=== PATIENT | female | born 1975 | race Caucasian/White ===

== ENCOUNTER 2018-04-03 02:09 | Emergency (ER) | payer OTHER ==
[2018-04-03 02:31] VITALS: TEMP 97.5
[2018-04-03] MEDS ORDERED: SODIUM CHLORIDE 0.9% 1,000 ML IV ONE (02:48)
--- NOTE | 2018-04-03 03:07 | ED ---
Female Urogenital HPI - General Chief complaint: Vaginal Bleeding Stated complaint: 8 Weeks Vaginal Bleeding Time Seen by Provider: 04/03/18 02:48 Source: patient, RN notes reviewed, old records reviewed Mode of arrival: ambulatory Limitations: no limitations - History of Present Illness Initial comments: Patient is a 42-year-old female, female who is approximately 8 weeks . She presents today with complaints of vaginal bleeding times one day. Patient states she has history of PCO S and had a hard time getting . She reports that she thought she was 3 days ago. Patient states that she's had no vomiting. She reports some mild abdominal cramping. Patient has no MEDICAL SUPERINTENDENT at this time.Patient denies any recent fever, chills, shortness of breath, chest pain, back pain, abdominal pain, nausea vomiting, numbness or tingling, dysuria or hematuria, constipation or diarrhea, headaches or visual changes, or any other current symptoms - Related Data Allergies Allergy/AdvReac Type Severity Reaction Status Date / Time No Known Allergies Allergy Verified 04/03/18 02:31 Review of Systems ROS Statement: Those systems with pertinent positive or pertinent negative responses have been documented in the HPI. ROS Other: All systems not noted in ROS Statement are negative. Past Medical History Additional Past Medical History / Comment(s): PCOS History of Any Multi-Drug Resistant Organisms: None Reported Smoking Status: Former smoker Past Alcohol Use History: Rare Past Drug Use History: None Reported General Exam - General Exam Comments Initial Comments: This is a 42-year-old female. Alert and oriented. No distress. Limitations: no limitations General appearance: alert, in no apparent distress Head exam: Present: atraumatic, normocephalic, normal inspection Eye exam: Present: normal appearance, PERRL, EOMI. Absent: scleral icterus, conjunctival injection, periorbital swelling ENT exam: Present: normal exam, mucous membranes moist Neck exam: Present: normal inspection. Absent: tenderness, meningismus, lymphadenopathy Respiratory exam: Present: normal lung sounds bilaterally. Absent: respiratory distress, wheezes, rales, rhonchi, stridor Cardiovascular Exam: Present: regular rate, normal rhythm, normal heart sounds. Absent: systolic murmur, diastolic murmur, rubs, gallop, clicks GI/Abdominal exam: Present: soft, normal bowel sounds. Absent: distended, tenderness, guarding, rebound, rigid External exam: Present: normal external exam Speculum exam: Present: normal speculum exam, vaginal bleeding By manual exam: Present: normal by manual exam. Absent: cervical motion tenderness Extremities exam: Present: normal inspection, full ROM, normal capillary refill. Absent: tenderness, pedal edema, joint swelling, calf tenderness Back exam: Present: normal inspection Neurological exam: Present: alert, oriented X3, CN II-XII intact Psychiatric exam: Present: normal affect, normal mood Skin exam: Present: warm, dry, intact, normal color. Absent: rash Course Vital Signs 04/03/18 02:27 Temperature 97.5 F L Pulse Rate 70 Respiratory 18 Rate Blood Pressure 118/79 O2 Sat by Pulse 98 Oximetry Medical Decision Making - Medical Decision Making Patient is a 42-year-old female presents for a permanent today with complaints of vaginal bleeding. She is currently between 7 and 8 weeks . Ultrasound shows a viable IUP measuring 6 weeks and 3 days. No evidence of subchorionic bleed. She does have some vaginal bleeding on exam. No adnexal tenderness. HCG level is 70,000. Rh+. Patient has no MEDICAL SUPERINTENDENT at this time. Given profile on-call MEDICAL SUPERINTENDENT. Patient advised to repeat hCG level in 2 days. Discussed if she has any further bleeding or pain that she should return for re- eval. All questions answered return parameters were discussed. Patient written a note for work. - Lab Data Result diagrams: 04/03/18 03:05 04/03/18 03:05 Lab Results 04/03/18 04/03/18 04/03/18 Range/Units 03:05 03:05 03:05 WBC 8.8 (3.8-10.6) k/uL RBC 4.39 (3.80-5.40) m/uL Hgb 13.4 (11.4-16.0) gm/dL Hct 39.1 (34.0-46.0) % MCV 89.0 (80.0-100.0) fL MCH 30.4 (25.0-35.0) pg MCHC 34.2 (31.0-37.0) g/dL RDW 12.9 (11.5-15.5) % Plt Count 204 (150-450) k/uL Neutrophils % 71 % Lymphocytes % 21 % Monocytes % 5 % Eosinophils % 2 % Basophils % 0 % Neutrophils # 6.3 (1.3-7.7) k/uL Lymphocytes # 1.8 (1.0-4.8) k/uL Monocytes # 0.4 (0-1.0) k/uL Eosinophils # 0.2 (0-0.7) k/uL Basophils # 0.0 (0-0.2) k/uL PT (9.0-12.0) sec INR (<1.2) APTT (22.0-30.0) sec Sodium 138 (137-145) mmol/L Potassium 3.8 (3.5-5.1) mmol/L Chloride 106 (98-107) mmol/L Carbon Dioxide 22 (22-30) mmol/L Anion Gap 10 mmol/L BUN 13 (7-17) mg/dL Creatinine 0.60 (0.52-1.04) mg/dL Est GFR (CKD-EPI)AfAm >90 (>60 ml/min/1.73 sqM) Est GFR (CKD-EPI)NonAf >90 (>60 ml/min/1.73 sqM) Glucose 89 (74-99) mg/dL Calcium 9.0 (8.4-10.2) mg/dL Total Bilirubin 0.7 (0.2-1.3) mg/dL AST 24 (14-36) U/L ALT 39 (9-52) U/L Alkaline Phosphatase 60 (38-126) U/L Total Protein 6.8 (6.3-8.2) g/dL Albumin 4.0 (3.5-5.0) g/dL HCG, Quant 96762.0 mIU/mL Urine HCG, Qual Detected (Not Detectd) Blood Type Blood Type Recheck 04/03/18 04/03/18 Range/Units 03:05 03:05 WBC (3.8-10.6) k/uL RBC (3.80-5.40) m/uL Hgb (11.4-16.0) gm/dL Hct (34.0-46.0) % MCV (80.0-100.0) fL MCH (25.0-35.0) pg MCHC (31.0-37.0) g/dL RDW (11.5-15.5) % Plt Count (150-450) k/uL Neutrophils % % Lymphocytes % % Monocytes % % Eosinophils % % Basophils % % Neutrophils # (1.3-7.7) k/uL Lymphocytes # (1.0-4.8) k/uL Monocytes # (0-1.0) k/uL Eosinophils # (0-0.7) k/uL Basophils # (0-0.2) k/uL PT 10.1 (9.0-12.0) sec INR 0.9 (<1.2) APTT 24.4 (22.0-30.0) sec Sodium (137-145) mmol/L Potassium (3.5-5.1) mmol/L Chloride (98-107) mmol/L Carbon Dioxide (22-30) mmol/L Anion Gap mmol/L BUN (7-17) mg/dL Creatinine (0.52-1.04) mg/dL Est GFR (CKD-EPI)AfAm (>60 ml/min/1.73 sqM) Est GFR (CKD-EPI)NonAf (>60 ml/min/1.73 sqM) Glucose (74-99) mg/dL Calcium (8.4-10.2) mg/dL Total Bilirubin (0.2-1.3) mg/dL AST (14-36) U/L ALT (9-52) U/L Alkaline Phosphatase (38-126) U/L Total Protein (6.3-8.2) g/dL Albumin (3.5-5.0) g/dL HCG, Quant mIU/mL Urine HCG, Qual (Not Detectd) Blood Type A Positive Blood Type Recheck [facility] ONLY - Radiology Data Radiology results: report reviewed Single live intrauterine with crown rump length estimated gestational age of 7 weeks and 3 days. Probable small left ovarian corpus luteum cyst. heart rate 160 beats per minute. Disposition Clinical Impression: Threatened miscarriage Disposition: HOME SELF-CARE Condition: Good Instructions (If sedation given, give patient instructions): Threatened Miscarriage (ED) Additional Instructions: Patient has a close follow-up with primary care physician and MEDICAL SUPERINTENDENT. Return to emergency department if any alarming signs or symptoms occur. Repeat hCG level in 2 days. Is patient prescribed a controlled substance at d/c from ED?: No Referrals: Sylvia Swan MD [Primary Care Provider] - 1-2 days Sofia Cole DO [Doctor of Osteopathic Medicine] - 1-2 days Time of Disposition: 04:33
[2018-04-03 03:23] LABS: Basophils % (A) 0 %; Eosinophils # (A) 0.2 k/uL (0-0.7); Eosinophils % (A) 2 %; HCT 39.1 % (34.0-46.0); HGB 13.4 gm/dL (11.4-16.0); Lymphocytes # (A) 1.8 k/uL (1.0-4.8); Lymphocytes % (A) 21 %; MCH 30.4 pg (25.0-35.0); MCHC 34.2 g/dL (31.0-37.0); Monocytes # (A) 0.4 k/uL (0-1.0); Monocytes % (A) 5 %; Neutrophils # (A) 6.3 k/uL (1.3-7.7); Neutrophils % (A) 71 %; Platelet Count 204 k/uL (150-450); RBC 4.39 m/uL (3.80-5.40); RDW 12.9 % (11.5-15.5); WBC 8.8 k/uL (3.8-10.6)
[2018-04-03 03:32] LABS: INR 0.9 (<1.2); Partial Thromboplastin Time 24.4 sec (22.0-30.0); Prothrombin Time 10.1 sec (9.0-12.0)
[2018-04-03 03:33] LABS: ALT 39 U/L (9-52); AST 24 U/L (14-36); Alkaline Phosphatase 60 U/L (38-126); Anion Gap 10 mmol/L; Blood Urea Nitrogen 13 mg/dL (7-17); Carbon Dioxide 22 mmol/L (22-30); Chloride 106 mmol/L (98-107); Glucose 89 mg/dL (74-99); Potassium 3.8 mmol/L (3.5-5.1); Sodium 138 mmol/L (137-145); Total Bilirubin 0.7 mg/dL (0.2-1.3); Total Protein 6.8 g/dL (6.3-8.2)
--- NOTE | 2018-04-03 04:28 | US ---
EXAM: US First Trimester, Transabdominal US , Transvaginal CLINICAL HISTORY: Reason: pain TECHNIQUE: Real-time transabdominal and transvaginal obstetrical ultrasound of the maternal pelvis and a first trimester with image documentation. Transvaginal imaging was used for better evaluation of the fetus and adnexa. COMPARISON: None available FINDINGS: Gestation: Intrauterine gestational sac with a single live intrauterine . Seffner-rump length corresponds to estimated gestational age of 7 weeks 3 days. Yolk sac identified. cardiac activity with heart rate of 168 bpm. Placenta/amniotic fluid: No definite subchorionic hemorrhage identified. Ovaries: Approximately 2 cm left ovarian cyst suggestive of corpus luteum cyst. Free fluid: No pelvic free fluid. IMPRESSION: Single live intrauterine with crown-rump length estimated gestational age of 7 weeks 3 days. Probable small left ovarian corpus luteum cyst.
[2018-04-03 05:06] VITALS: BP 117/74; PULSE 85; RESP 16
[2018-04-04 17:19] LABS: C. trachomatis,PCR Negative (Neg,Equiv); Chlamydia trachomatis Source Vagina
[2018-04-04 17:23] LABS: N. gonorrhoeae,PCR Negative (Neg,Equiv); Neisseria Source Vagina
== END 2018-04-03 05:11 | disposition home or self-care (01) ==
LOC: EC 02:09
DX: O20.0 Threatened abortion (principal); Z87.891 Personal history of nicotine dependence; Z87.42 Personal history of other diseases of the female genital tract; Z3A.01 Less than 8 weeks gestation of pregnancy
CPT/HCPCS: 36415; 76801; 76817; 80053; 81025; 84702; 85025; 85610; 85730; 86900; 86901; 87070; 87205; 87491; 87591; 87808; 96360; 99284

== ENCOUNTER → 2018-04-05 | Outpatient (CLI) | payer OTHER | LOC: LABMAIN 09:28 | PROVIDERS: ATTEND Physician Assistant Medical | DX: O20.0 Threatened abortion (principal) | CPT/HCPCS: 36415; 84702 ==

== ENCOUNTER 2018-10-04 02:45 | Inpatient (IN) | payer OTHER ==
[2018-10-04] MEDS ORDERED: LIDOCAINE 0.5% (PF) 5 MG/ML (50 ML SDV) SQ PRN (03:09)
[2018-10-04] MEDS ORDERED: CARBOPROST TROMETHAMINE 250 MCG/ML 1 ML AMP IM PRN (03:09)
[2018-10-04] MEDS ORDERED: OXYTOCIN 10 UNIT/ML 1 ML VIAL IM PRN (03:09)
[2018-10-04] MEDS ORDERED: TERBUTALINE 1 MG/ML VIAL SQ PRN (03:09)
[2018-10-04] MEDS ORDERED: METHYLERGONOVINE 0.2 MG/ML 1 ML AMP IM PRN (03:09)
[2018-10-04] MEDS ORDERED: LACTATED RINGERS 1,000 ML IV SCH (03:15)
--- NOTE | 2018-10-04 04:00 | P.HPOB ---
History of Present Illness H&P Date: 10/04/18 Chief Complaint: Rupture of membranes This is a 42-year-old 1 para 0 woman who has an estimated due date of 11/12/2018. She presents at 34-3/7 weeks gestation with spontaneous rupture of membranes followed by a rapid onset of labor. She reports no precipitating inc ident. She was awoken from sleep with a gush of bloody fluid. Rapidly after that she commenced having significant abdominal pain. This is up at approximately 1:30 AM. She presented to labor and delivery triage where she was found to be completely dilated. She denies any previous complications in the and she denies recent fevers, chills, abdominal pain, leakage of fluids, vaginal bleeding or other changes. has been complicated by advanced maternal age and maternal morbid obesity. Laboratory data: Blood type A+, antibody screen negative, rubella immune, HIV nonreactive, hepatitis B surface antigen negative, group B strep unknown. Review of Systems All systems: negative Past Medical History Additional Past Medical History / Comment(s): PCOS History of Any Multi-Drug Resistant Organisms: None Reported Smoking Status: Never smoker Medications and Allergies Home Medications Medication Instructions Recorded Confirmed Type metFORMIN HCL ER [Glucophage Xr] 1,000 mg PO PC-SUPPER 10/04/18 10/04/18 History Allergies Allergy/AdvReac Type Severity Reaction Status Date / Time No Known Allergies Allergy Verified 10/04/18 03:08 Exam Intake and Output 10/03/18 10/03/18 10/04/18 14:59 22:59 06:59 Other: Weight 113.398 kg Targeted physical exam is performed. Upon my initial evaluation this is a morbidly obese female in active labor. Cervix is completely dilated and vertex is at the 2+ station. heart tones between 105 and 130 bpm by scalp electrode. Assessment and Plan (1) Advanced maternal age (AMA) in Current Visit: Yes Status: Acute Code(s): FNR1282 - SNOMED Code(s): 991726142 (2) Premature rupture of membranes Current Visit: Yes Status: Acute Code(s): O42.90 - LUIS ROM, 7TH0 BETW RUPT & ONST LABR, UNSP WEEKS OF GEST SNOMED Code(s): 14374592 (3) labor Current Visit: Yes Status: Acute Code(s): O60.00 - LABOR WITHOUT DELIVERY, UNSPECIFIED TRIMESTER SNOMED Code(s): 8119855 (4) Obesity Current Visit: Yes Status: Acute Code(s): E66.9 - OBESITY, UNSPECIFIED SNOMED Code(s): 677183202 Plan: 42-year-old 1 presents with premature rupture of membranes and labor. Anticipate imminent vaginal delivery. Payroll Human Resources Assistant and special care nursery notified.
[2018-10-04] MEDS ORDERED: LANOLIN CREAM 5 GM TUBE TOPICAL PRN (04:04)
[2018-10-04] MEDS ORDERED: diphenhydrAMINE 50 MG CAP PO PRN (04:04)
[2018-10-04] MEDS ORDERED: HYDROCORTISONE 2.5% RECTAL CREAM 30 GM TUBE RECTAL PRN (04:04)
[2018-10-04] MEDS ORDERED: ZOLPIDEM 5 MG TAB PO PRN (04:04)
[2018-10-04] MEDS ORDERED: diphenhydrAMINE 50 MG/ML 1 ML VIAL IVP PRN ×2 (04:04)
[2018-10-04] MEDS ORDERED: diphenhydrAMINE 25 MG CAP PO PRN (04:04)
[2018-10-04] MEDS ORDERED: IBUPROFEN 600 MG TAB PO PRN (04:04)
[2018-10-04] MEDS ORDERED: SIMETHICONE 80 MG CHEWABLE PO PRN (04:04)
[2018-10-04] MEDS ORDERED: ACETAMINOPHEN TAB 325 MG TAB PO PRN (04:04)
[2018-10-04] MEDS ORDERED: BENZOCAINE/MENTHOL SPRAY 1 GM/SPRAY AEROSOL TOPICAL PRN (04:04)
[2018-10-04] MEDS ORDERED: WITCH HAZEL 1 EACH MED..PAD TOPICAL PRN (04:04)
--- NOTE | 2018-10-04 04:04 | P.PROBDLV ---
Vaginal Delivery Note - . Vaginal Delivery Note: Findings: Male infant in the vertex presentation with Apgars of 9 at 1 minute and 9 at 5 minutes weighing 4 lbs. 13 oz. Placenta with calcifications and dark adherent clots consistent with possible abruption. First-degree perineal laceration. Delivery summary: This is a 42-year-old 1 para 0 woman with an estimated due date of 11/12/2018 who presents at 34-3/7 weeks gestation with premature rupture of membranes and rapid onset of labor. She was completely dilated upon presentation. Rupture of membranes was at approximately 1:30. She had strong urge to push. She was repositioned, prepped and with maternal effort the head did crown. Coremaking Machine Operator was in attendance. With additional maternal effort the rest the infant delivered onto the field. The cord was clamped and cut and the was taken immediately to special care nursery. Delivery time was approximately 3:30 AM. She had an approximately 5 minute third stage of labor to deliver a calcified-appearing placenta with dark adherent clot. Perineum was inspected and a first-degree laceration was noted. This was infused with lidocaine and repaired with a single [id number] suture. The uterus was difficult to palpate secondary to maternal body habitus however felt to be firm. Patient received Pitocin following delivery of the placenta. EBL was approximately 150 mL's.
[2018-10-04] MEDS ORDERED: OXYTOCIN 20 UNITS/1000 ML NS 1,000 ML IV SCH (04:15)
[2018-10-04 04:17] VITALS: BMI 44.2
[2018-10-04 07:44] VITALS: BP 136/74; PULSE 74; RESP 20; TEMP 97.4
[2018-10-04] MEDS: SENNOSIDES-DOCUSATE SODIUM 1 EACH TAB PO SCH (08:00)
[2018-10-04 09:59] LABS: Anisocytosis Slight; Basophils % (A) 0 %; Eosinophils % (A) 0 %; HCT 33.2 % (34.0-46.0); HGB 11.3 gm/dL (11.4-16.0); Lymphocytes # (A) 1.3 k/uL (1.0-4.8); Lymphocytes % (A) 12 %; MCH 30.5 pg (25.0-35.0); MCHC 34.2 g/dL (31.0-37.0); MCV 89.1 fL (80.0-100.0); Monocytes # (A) 0.3 k/uL (0-1.0); Monocytes % (A) 3 %; Neutrophils # (A) 8.7 k/uL (1.3-7.7); Neutrophils % (A) 83 %; Platelet Count 163 k/uL (150-450); RBC 3.72 m/uL (3.80-5.40); RDW 17.2 % (11.5-15.5); WBC 10.4 k/uL (3.8-10.6)
[2018-10-04] MEDS ORDERED: CALCIUM CARBONATE 500 MG CHEWABLE PO PRN (10:41)
--- NOTE | 2018-10-04 10:45 | P.DS ---
Providers Date of admission: 10/04/18 03:16 Expected date of discharge: 10/04/18 Attending physician: Sofia Cole Primary care physician: Stated None - Discharge Diagnosis(es) (1) Advanced maternal age (AMA) in Current Visit: Yes Status: Acute (2) Premature rupture of membranes Current Visit: Yes Status: Acute (3) labor Current Visit: Yes Status: Acute (4) Obesity Current Visit: Yes Status: Acute (5) Normal spontaneous vaginal delivery Current Visit: Yes Status: Acute (6) Perineal laceration with delivery, first degree Current Visit: Yes Status: Acute Hospital Course: This is a 42-year-old 4 now para 0101 woman who presented at 34-3/7 weeks gestation with spontaneous rupture of membranes and active advance labor. She had rupture of membranes at approximately 1:30 AM and by the time of her presentation on labor and delivery at approximately 3 AM she was completely dilated. She went on to deliver a liveborn male infant over a first-degree perineal laceration with Apgars of 9 at 1 minute and 9 at 5 minutes weighing 4 lbs. 13 oz. The infant was transported to a tertiary care facility. The patient reported fluid was bloody upon rupture and there was some dark adherent clot to portion of the placenta possibly indicating abruption. Her immediate course has been unremarkable. She has had scant lochia. Her vital signs have been stable. She has no complaints of pain. She was therefore discharged home that so she can join her baby. Procedures: Patient Condition at Discharge: Good Plan - Discharge Summary New Discharge Prescriptions: No Action metFORMIN HCL ER [Glucophage Xr] 1,000 mg PO PC-SUPPER Discharge Medication List metFORMIN HCL ER [Glucophage Xr] 1,000 mg PO PC-SUPPER 10/04/18 [History] Follow up Appointment(s)/Referral(s): Sofia Cole DO [Doctor of Osteopathic Medicine] - 1 Week Activity/Diet/Wound Care/Special Instructions: Follow-up in the office as scheduled in 1 week. Notify the office or on-call physician with any concerning signs or symptoms including heavy vaginal bleeding, foul vaginal discharge, severe abdominal or pelvic pain, fever greater than 100.5, redness or swelling of the lower extremities. May use over-the- counter ibuprofen and/or Tylenol as needed for discomfort. No intercourse, nothing in the vagina for 6 weeks. Discharge Disposition: HOME SELF-CARE
== END 2018-10-04 11:15 | disposition home or self-care (01) | DRG 807 ==
LOC: FBPOP 02:45 → 4FBP 03:16
PROVIDERS: ADMIT Obstetrics & Gynecology; ATTEND Obstetrics & Gynecology Obstetrics
PROC: 10E0XZZ Delivery of Products of Conception, External Approach (ICD-10-PCS; principal; 2018-10-04)
PROC: 0HQ9XZZ Repair Perineum Skin, External Approach (ICD-10-PCS; 2018-10-04)
DX: O60.14X0 Preterm labor third trimester with preterm delivery third trimester, not applicable or unspecified (principal); Z37.0 Single live birth; E66.01 Morbid (severe) obesity due to excess calories; O42.913 Preterm premature rupture of membranes, unspecified as to length of time between rupture and onset of labor, third trimester; O70.0 First degree perineal laceration during delivery; O99.214 Obesity complicating childbirth; O75.89 Other specified complications of labor and delivery; E28.2 Polycystic ovarian syndrome; Z3A.34 34 weeks gestation of pregnancy; Z79.84 Long term (current) use of oral hypoglycemic drugs
CPT/HCPCS: 59025; 84112; 85025; 88307; 99213

== ENCOUNTER → 2020-01-07 | Outpatient (CLI) | payer OTHER ==
--- NOTE | 2020-01-07 12:14 | US ---
EXAMINATION TYPE: Transabdominal DATE OF EXAM: 01/07/2020 11:19 AM COMPARISON: NONE CLINICAL HISTORY: O46.91 Antepartum hemorrhage, unspecified, first t. Spotting EXAM PERFORMED: Transabdominal (TA) EXAM MEASUREMENTS: GESTATIONAL AGE / DATING Physician Established: Not yet established Dates by LMP: LMP unknown Dates by First Scan: No previous this is first scan Dates by Current Scan for: ( 9 weeks/2 days) EDC: 08/11/2020 MATERNAL ANATOMY Uterus: 14.2 x 7.9 x 7.7 cm Right Ovary: Obscured by bowel gas. Left Ovary: 3.6 x 2.3 x 3.0 cm Post CDS / Adnexa: wnl Presence of free fluid: wnl Presence of corpus luteal cyst: no Presence of subchorionic bleed: no GESTATION / SURVEY CRL: 2.3cm (9 weeks/0 days) Yolk Sac (normal less than 6mm): 6 mm Heart Rate: 170 bpm Rhythm: Normal IUP: Viable IUP Beta HcG (if available): Not available at this time IMPRESSION: Single intrauterine gestation estimated at 9 weeks 0 days gestation based on the crown-rump length. C ardiac activity measures 170 bpm.
== END | disposition home or self-care (01) ==
LOC: RADUSWWP 11:00
PROVIDERS: ATTEND Obstetrics & Gynecology Obstetrics
DX: O46.91 Antepartum hemorrhage, unspecified, first trimester (principal); Z3A.09 9 weeks gestation of pregnancy
CPT/HCPCS: 76801

== ENCOUNTER 2020-05-14 03:18 | Outpatient (CLI) | payer OTHER ==
[2020-05-14 03:57] VITALS: BP 122/71; PULSE 83; RESP 16; TEMP 96
--- NOTE | 2020-05-15 07:35 | P.MSEPDOC ---
Presenting Problems - Arrival Data Date of Arrival on Unit: 05/14/20 Time of Arrival on Unit: 03:18 Mode of Transport: Wheelchair - Complaint OB-Reason for Admission/Chief Complaint: Pain Comment: Right lower abdominal pain. Pt reports 8/10 pain. Medical History - Information : 2 Para: 1 Term: 0 : 1 Abortions: Spontaneous or Elective: 0 Number of Living Children: 1 - Gestational Age Gestational Age by VANESSA (wks/days): 28 Weeks and 1 Days Review of Systems - Review of Systems Constitutional: No problems Breast: No problems ENT: No problems Cardiovascular: No problems Respiratory: No problems Gastrointestinal: No problems Genitourinary: No problems Musculoskeletal: No problems Neurological: No problems Skin: No problems Vital Signs - Temperature Temperature: 96 F Temperature Source: Temporal Artery Scan - Pulse Right Brachial Pulse Rate: 83 Pulse Assessment Method: Automatic Cuff - Respirations Respiratory Rate: 16 Oxygen Delivery Method: Room Air O2 Sat by Pulse Oximetry: 98 - Blood Pressure Right Arm Blood Pressure: 122/71 Blood Pressure Mean: 88 Blood Pressure Source: Automatic Cuff Medical Screen Scoring (Pre) - Cervical Exam Dilation: Exam Deferred Effacement: Exam Deferred Membranes: Intact - Uterine Contractions Frequency: N/A Duration: N/A Intensity: N/A - Maternal Vital Signs Maternal Temperature: N/A Maternal Blood Pressure: N/A Signs of Preeclampsia: N/A Maternal Respirations: N/A - Maternal Trauma Maternal Trauma: N/A - Assessment - Baby A Baseline FHR: 140 Heart Rate - NICHD Category: Category I (Normal) = 0 NST: Reactive Position: N/A Station: N/A - Total Score - Baby A Total Score - Baby A: 0 - Total Score - Baby B Total Score - Baby B: 0 - Total Score - Baby C Total Score - Baby C: 0 - Level of Risk - Baby A Level of Risk - Baby A: Low (0-5) - Level of Risk - Baby B Level of Risk - Baby B: Low (0-5) - Level of Risk - Baby C Level of Risk - Baby C: Low (0-5) Physician Notification (Pre) - Physician Notified Physician Notified Date: 05/14/20 Physician Notified Time: 03:47 New Order Received: Yes - Notification Comment Comment: Dr. Troy called and given report on pt. Pt c/o. VS WNL. Reactive NST. Pt reports of positional pain and currently denies pain while sitting on triage bed with heat pack applied to abdomen. To educate pt to wear maternal support belt during the day and use a body pillow in bed at night. Orders recieved to d/c pt to home and to follow up with Dr. Cole at apt on 05/24. Disposition - Disposition OB Disposition: Physician follow up in office, Discharge to home Discharge Date: 05/14/20 Discharge Time: 03:57 I agree with the RN Medical Screening Exam: Yes Case reviewed; plan agreed upon as documented in EMR&OBIX.: Yes Comments: Patient was neither seen nor examined by me. Diagnosis: UNSPECIFIED ABDOMINAL PAIN
== END 2020-05-14 03:58 | disposition home or self-care (01) ==
LOC: FBPOP 03:18
PROVIDERS: ATTEND Obstetrics & Gynecology
DX: O99.891 Other specified diseases and conditions complicating pregnancy (principal); Z3A.28 28 weeks gestation of pregnancy
CPT/HCPCS: 59025; G0463; 99213

== ENCOUNTER 2020-07-04 11:19 | Outpatient (CLI) | payer OTHER ==
[2020-07-04] MEDS ORDERED: BETAMET ACET-BETAMETH SOD PHOS 6 MG/ML MDV IM SCH (11:45)
== END 2020-07-04 11:48 | disposition home or self-care (01) ==
LOC: FBPOP 11:19
PROVIDERS: ATTEND Obstetrics & Gynecology Obstetrics
DX: O60.00 Preterm labor without delivery, unspecified trimester (principal); Z3A.00 Weeks of gestation of pregnancy not specified

== ENCOUNTER 2020-07-05 11:27 | Outpatient (CLI) | payer OTHER ==
[2020-07-05] MEDS ORDERED: BETAMET ACET-BETAMETH SOD PHOS 6 MG/ML MDV IM SCH (11:45)
== END 2020-07-05 11:47 | disposition home or self-care (01) ==
LOC: FBPOP 11:27
PROVIDERS: ATTEND Obstetrics & Gynecology Obstetrics
DX: O47.03 False labor before 37 completed weeks of gestation, third trimester (principal); Z3A.35 35 weeks gestation of pregnancy
CPT/HCPCS: 96372; J0702

== ENCOUNTER 2020-07-16 19:19 | Outpatient (CLI) | payer OTHER ==
[2020-07-16 21:45] VITALS: BP 104/62; PULSE 78; RESP 16; TEMP 97.8
--- NOTE | 2020-08-09 15:18 | P.MSEPDOC ---
Presenting Problems - Arrival Data Date of Arrival on Unit: 07/16/20 Time of Arrival on Unit: 19:20 Mode of Transport: Ambulatory - Complaint OB-Reason for Admission/Chief Complaint: Possible Onset of Labor Comment: back pain started at 1600. Medical History - Information : 2 Para: 1 Term: 0 : 1 Abortions: Spontaneous or Elective: 0 Number of Living Children: 1 - Gestational Age Gestational Age by VANESSA (wks/days): 37 Weeks and 1 Days - History Complications: Prior Review of Systems - Review of Systems Constitutional: No problems Breast: No problems ENT: No problems Cardiovascular: No problems Respiratory: No problems Gastrointestinal: No problems Genitourinary: No problems Musculoskeletal: No problems Neurological: No problems Skin: No problems Vital Signs - Temperature Temperature: 97.8 F Temperature Source: Oral - Pulse Right Sitting Pulse Rate: 78 Pulse Assessment Method: Automatic Cuff - Respirations Respiratory Rate: 16 Oxygen Delivery Method: Room Air - Blood Pressure Right Arm Sitting Blood Pressure: 104/62 Blood Pressure Mean: 76 Blood Pressure Source: Automatic Cuff Medical Screen Scoring - Assessment - Baby A Baseline FHR: 135 Physician Notification - Physician Notified Physician Notified Date: 07/16/20 Physician Notified Time: 20:36 Physician: Sofia Cole New Order Received: Yes - Notification Comment Comment: D/C home with no cervical change Disposition - Disposition OB Disposition: Discharge to home, Written follow up instructions reviewed Discharge Date: 07/16/20 Discharge Time: 21:10 I agree with the RN Medical Screening Exam: Yes Case reviewed; plan agreed upon as documented in EMR&OBIX.: Yes Diagnosis: FALSE LABOR BEFORE 37 COMPLETED WEEKS OF GEST, THIRD TRI
== END 2020-07-16 21:10 | disposition home or self-care (01) ==
LOC: FBPOP 19:19
PROVIDERS: ATTEND Obstetrics & Gynecology Obstetrics
DX: O47.1 False labor at or after 37 completed weeks of gestation (principal); Z3A.37 37 weeks gestation of pregnancy
CPT/HCPCS: 59025; G0463; 99213

== ENCOUNTER 2020-07-22 21:10 | Inpatient (IN) | payer OTHER ==
[2020-07-22] MEDS ORDERED: TERBUTALINE 1 MG/ML VIAL SQ PRN (21:21)
[2020-07-22] MEDS ORDERED: METHYLERGONOVINE 0.2 MG/ML 1 ML AMP IM PRN (21:21)
[2020-07-22] MEDS ORDERED: OXYTOCIN 10 UNIT/ML 1 ML VIAL IM PRN (21:21)
[2020-07-22] MEDS ORDERED: LIDOCAINE 0.5% (PF) 5 MG/ML (50 ML SDV) SQ PRN (21:21)
[2020-07-22] MEDS ORDERED: CARBOPROST TROMETHAMINE 250 MCG/ML 1 ML AMP IM PRN (21:21)
[2020-07-22] MEDS ORDERED: LACTATED RINGERS 1,000 ML IV SCH (21:30)
[2020-07-22] MEDS ORDERED: OXYTOCIN 30 UNITS/500 ML NS 30 UNIT in SALINE 1 500ML.BAG IV SCH (21:30)
[2020-07-22 21:38] LABS: Basophils % (A) 0 %; Eosinophils # (A) 0.1 k/uL (0-0.7); Eosinophils % (A) 2 %; HCT 39.3 % (34.0-46.0); Lymphocytes # (A) 2.1 k/uL (1.0-4.8); Lymphocytes % (A) 26 %; MCH 30.3 pg (25.0-35.0); MCV 91.6 fL (80.0-100.0); Mean Platelet Volume 9.8; Monocytes # (A) 0.5 k/uL (0-1.0); Monocytes % (A) 6 %; Neutrophils # (A) 5.2 k/uL (1.3-7.7); Neutrophils % (A) 65 %; Platelet Count 164 k/uL (150-450); RBC 4.29 m/uL (3.80-5.40); RDW 15.1 % (11.5-15.5)
--- NOTE | 2020-07-22 21:55 | P.HPOB ---
History of Present Illness H&P Date: 07/22/20 Chief Complaint: My water broke at 8:30 This is a 44-year-old white female 2 para 1001 EDC 08/05/2020 at 38 weeks gestation. Patient presented with a complaint of her water breaking at home and a 31 she was on the toilet. She is having strong regular contractions. She denies vaginal bleeding or fluid leakage. Fetus is been active throughout the . history is significant for blood type A positive, rubella status immune. VDRL testing, gonorrhea and chlamydia cultures, HIV testing, hepatitis B surface antigen, rupee strep cultures all negative. One-hour Glucola 145, three-hour GTT within normal limits. Past history is significant for polycystic ovarian syndrome. Past surgical history laparoscopy 2001. Current medications baby aspirin daily, metformin 1000 mg tablets daily, folic acid daily. ALLERGIES include codeine to which reports tachycardia and seasonal ALLERGIES. Family history significant for hypertension, Down syndrome COPD. Reproductive history vaginal delivery 2019 at 34 weeks gestation of 4 lbs. 13 oz. male social history patient is a former tobacco smoker, she denies alcohol or drug use. She is , is present at the bedside. On exam patient is 5 foot 5 inches, 270 pounds, vital signs are stable and she is afebrile. General exam is within normal limits. Cervix is 8 cm dilated on admission, vertex presentation, obvious clear fluid, 90% effaced, -1 station. heart rate consistent with reactive NST. Impression: Advanced maternal age, 38 weeks gestation, active labor. Obesity. Plan close maternal and surveillance. Anticipate normal spontaneous vaginal delivery. Review of Systems Constitutional: Reports as per HPI Past Medical History Past Medical History: No Reported History Additional Past Medical History / Comment(s): PCOS History of Any Multi-Drug Resistant Organisms: None Reported Additional Past Surgical History / Comment(s): LAPROSCOPY Past Anesthesia/Blood Transfusion Reactions: No Reported Reaction Smoking Status: Former smoker - Past Family History Mother Family Medical History: No Reported History Medications and Allergies Home Medications Medication Instructions Recorded Confirmed Type metFORMIN HCL ER [Glucophage Xr] 500 mg PO PC-SUPPER 10/04/18 07/22/20 History Aspirin [Children's Aspirin] 1 tab PO DAILY 05/14/20 07/22/20 History Pnv No.95/Ferrous Fum/Folic AC 1 tab PO DAILY 05/14/20 07/22/20 History [ Multivitamin Tablet] Allergies Allergy/AdvReac Type Severity Reaction Status Date / Time No Known Allergies Allergy Verified 07/22/20 21:14 Exam Intake and Output 07/22/20 07/22/20 07/22/20 06:59 14:59 22:59 Other: Weight 122.47 kg See dictation under HPI Results Result Diagrams: 07/22/20 21:21 Assessment and Plan Assessment: 38 week intrauterine , active labor, morbid obesity, advanced maternal age. All signs reassuring. Plan: Anticipate normal spontaneous vaginal delivery. Time with Patient: Less than 30
[2020-07-22] MEDS ORDERED: ACETAMINOPHEN TAB 325 MG TAB PO PRN (21:59)
[2020-07-22] MEDS ORDERED: diphenhydrAMINE 50 MG/ML 1 ML VIAL IVP PRN ×2 (21:59)
[2020-07-22] MEDS ORDERED: diphenhydrAMINE 50 MG CAP PO PRN (21:59)
[2020-07-22] MEDS ORDERED: BENZOCAINE/MENTHOL SPRAY 1 GM/SPRAY AEROSOL TOPICAL PRN (21:59)
[2020-07-22] MEDS ORDERED: ZOLPIDEM 5 MG TAB PO PRN (21:59)
[2020-07-22] MEDS ORDERED: diphenhydrAMINE 25 MG CAP PO PRN (21:59)
[2020-07-22] MEDS ORDERED: LANOLIN CREAM 5 GM TUBE TOPICAL PRN (21:59)
[2020-07-22] MEDS ORDERED: HYDROCORTISONE 2.5% RECTAL CREAM 30 GM TUBE RECTAL PRN (21:59)
[2020-07-22] MEDS ORDERED: SIMETHICONE 80 MG CHEWABLE PO PRN (21:59)
--- NOTE | 2020-07-22 21:59 | P.PROBDLV ---
Vaginal Delivery Note - . Vaginal Delivery Note: This is a 44-year-old white female 2 para 1001 EDC 08/05/2020 at 38 weeks gestation who presented with spontaneous amniorrhexis at home, clear fluid, and strong regular uterine contractions to follow. Fetus is been active throughout the . Group B strep cultures negative, blood type B positive, rubella status immune. Please see admitting history and physical for details. On admission patient was 8 cm dilated. She was quickly placed into a room, IV started, labs drawn, and patient was admitted. Shortly thereafter she became completely dilated at 2131 hours. Perineal body was prepped and draped in usual sterile fashion. With excellent, controlled maternal expulsive efforts the 's head delivered occiput anterior and she restituted accordingly. There is a nuchal cord 1 that was reduced. The right or anterior shoulder was delivered easily from underneath the pubic symphysis at which time the oropharynx, nasopharynx, and external nares were all bulb suctioned. Patient was officially delivered of a liveborn female at 2134 hours. Umbilical cord was doubly clamped and ligated, she was handed to waiting nurses for evaluation where scores of 9 and 9 at one and 5 minutes respectively were given. Placenta delivered spontaneously, it was inspected and noted to be intact with trivascular cord at 2137 hours. Careful inspection now of the cervix, vagina, perineum, periurethral, and perirectal areas revealed a superficial first-degree laceration just posterior to the clitoris. It is superficial, not bleeding, and therefore left to close by secondary intention. It is approximately 1.5 cm in length. Total estimated blood loss on delivery 200 mL's. All sponge needle and enhancement counts are correct. Infant weight 3160 g or 7 lbs. 0 oz.
[2020-07-22] MEDS: IBUPROFEN 600 MG TAB PO SCH (22:10)
[2020-07-22 23:24] VITALS: RESP 16
[2020-07-23] MEDS: IBUPROFEN 600 MG TAB PO SCH ×4 (04:21→20:26)
[2020-07-23 08:15] VITALS: BP 126/83; PULSE 80; TEMP 98
[2020-07-23] MEDS: SENNOSIDES-DOCUSATE SODIUM 1 EACH TAB PO SCH ×2 (08:24→19:16)
--- NOTE | 2020-07-23 08:41 | P.DS ---
Providers Date of admission: 07/22/20 21:25 Expected date of discharge: 07/23/20 Attending physician: Sofia Cole Primary care physician: Stated None Hospital Course: This is a 44-year-old white female 2 para 1001 EDC 08/05/2020 at 38 weeks gestation. Patient presented in active spontaneous labor, with amniorrhexis at home, clear fluid. is remarkable for blood type A positive, rubella status immune, group B strep cultures negative, advanced maternal age. Please see my dictated history and physical for details. Patient was admitted and quickly delivered vaginally a liveborn female with scores of 9 and 9 at one and 5 minutes respectively. There was a superficial periclitoral abrasion, not requiring sutures. There was a nuchal cord 1 that was reduced. weight 3160 g, or 7 lbs. 0 oz. Estimated blood loss 200 mL's. Please see dictated delivery note for details. This is a patient is doing quite well. She is voiding, ambulating, passing flatus without difficulty. Vital signs are stable and she is afebrile. Fundus is firm and in the midline, symmetric and 18 week size. Extremities are negative for edema. is doing well. Patient is judged to be in very good condition for discharge home. 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 I have reminded her no intercourse, tampons or douching. She will use [id number] Advil or Aleve, or Motrin as needed for pain. She will call with any fevers shakes or chills, foul smelling or copious lochia, with the passage of large blood clots, with any pain not alleviated by [id number] products, or indeed with any concerns. Assessment: Doing well day #1 Patient Condition at Discharge: Good Plan - Discharge Summary Discharge Rx Participant: No New Discharge Prescriptions: No Action metFORMIN HCL ER [Glucophage Xr] 500 mg PO PC-SUPPER Aspirin [Children's Aspirin] 1 tab PO DAILY Pnv No.95/Ferrous Fum/Folic AC [ Multivitamin Tablet] 1 tab PO DAILY Discharge Medication List metFORMIN HCL ER [Glucophage Xr] 500 mg PO PC-SUPPER 10/04/18 [History] Aspirin [Children's Aspirin] 1 tab PO DAILY 05/14/20 [History] Pnv No.95/Ferrous Fum/Folic AC [ Multivitamin Tablet] 1 tab PO DAILY 05/14/20 [History] Follow up Appointment(s)/Referral(s): Sofia Cole DO [Doctor of Osteopathic Medicine] - 6 Weeks Discharge Disposition: HOME SELF-CARE
== END 2020-07-23 22:20 | disposition home or self-care (01) | DRG 807 ==
LOC: FBPOP 21:10 → 4FBP 21:25
PROVIDERS: ADMIT Obstetrics & Gynecology; ATTEND Obstetrics & Gynecology Obstetrics
PROC: 10E0XZZ Delivery of Products of Conception, External Approach (ICD-10-PCS; principal; 2020-07-22)
PROC: 0HQ9XZZ Repair Perineum Skin, External Approach (ICD-10-PCS; 2020-07-22)
DX: O69.81X0 Labor and delivery complicated by cord around neck, without compression, not applicable or unspecified (principal); Z37.0 Single live birth; O70.0 First degree perineal laceration during delivery; O99.214 Obesity complicating childbirth; O99.52 Diseases of the respiratory system complicating childbirth; J30.2 Other seasonal allergic rhinitis; E66.9 Obesity, unspecified; Z3A.38 38 weeks gestation of pregnancy; Z79.82 Long term (current) use of aspirin; Z79.84 Long term (current) use of oral hypoglycemic drugs; Z82.49 Family history of ischemic heart disease and other diseases of the circulatory system; Z82.5 Family history of asthma and other chronic lower respiratory diseases; Z82.79 Family history of other congenital malformations, deformations and chromosomal abnormalities; Z87.891 Personal history of nicotine dependence; Z88.5 Allergy status to narcotic agent
CPT/HCPCS: 59025; 84112; 85025; 86850; 86900; 86901; 99213

== ENCOUNTER 2021-09-18 23:56 | Emergency (ER) | payer OTHER ==
[2021-09-19 00:07] VITALS: TEMP 98.6
[2021-09-19] MEDS ORDERED: SODIUM CHLORIDE 0.9% 1,000 ML IV ONE ×2 (00:23→02:33)
--- NOTE | 2021-09-19 00:26 | ED ---
General Adult HPI - General Chief complaint: Neuro Symptoms/Deficit Stated complaint: Weakness Time Seen by Provider: 09/19/21 00:02 Source: patient Mode of arrival: wheelchair - History of Present Illness Initial comments: This patient is a 45-year-old woman who presents with complaint that "I think I'm having a panic attack." The patient states she had gone to bed feeling re latively well. She woke up around around 11 PM feeling like she couldn't catch her breath, like she had restless legs, and was very anxious. When the symptoms did not resolve, she came here to be evaluated. The patient is denying pain. She is not having any focal weakness. She is having some numbness to the extremities. Onset/Timin -: hour(s) Consistency: constant Improves with: none Worsens with: none Associated Symptoms: shortness of breath, other Treatments Prior to Arrival: none - Related Data Home Medications Medication Instructions Recorded Confirmed metFORMIN HCL ER [Glucophage Xr] 500 mg PO PC-SUPPER 10/04/18 07/22/20 Aspirin [Children's Aspirin] 1 tab PO DAILY 05/14/20 07/22/20 Pnv No.95/Ferrous Fum/Folic AC 1 tab PO DAILY 05/14/20 07/22/20 [ Multivitamin Tablet] Allergies Allergy/AdvReac Type Severity Reaction Status Date / Time No Known Allergies Allergy Verified 09/19/21 00:07 Review of Systems ROS Statement: Those systems with pertinent positive or pertinent negative responses have been documented in the HPI. ROS Other: All systems not noted in ROS Statement are negative. Constitutional: Denies: fever, chills Eyes: Denies: vision change Respiratory: Denies: cough, dyspnea Cardiovascular: Reports: palpitations. Denies: chest pain, orthopnea, syncope Gastrointestinal: Denies: abdominal pain, vomiting, diarrhea Genitourinary: Denies: dysuria, hematuria Musculoskeletal: Denies: back pain Skin: Denies: rash Neurological: Reports: paresthesias. Denies: headache, weakness, numbness Psychiatric: Reports: anxiety Past Medical History Past Medical History: No Reported History Additional Past Medical History / Comment(s): PCOS History of Any Multi-Drug Resistant Organisms: None Reported Additional Past Surgical History / Comment(s): LAPROSCOPY Past Anesthesia/Blood Transfusion Reactions: No Reported Reaction Past Psychological History: No Psychological Hx Reported Smoking Status: Former smoker Past Alcohol Use History: None Reported Past Drug Use History: None Reported - Past Family History Mother Family Medical History: No Reported History General Exam General appearance: alert, in no apparent distress, anxious Head exam: Present: atraumatic, normocephalic Eye exam: Present: normal appearance, PERRL, EOMI. Absent: scleral icterus, conjunctival injection, nystagmus ENT exam: Present: mucous membranes dry Neck exam: Present: normal inspection Respiratory exam: Present: normal lung sounds bilaterally. Absent: respiratory distress, wheezes, rales, rhonchi, stridor Cardiovascular Exam: Present: regular rate, normal rhythm, normal heart sounds. Absent: systolic murmur, diastolic murmur, rubs, gallop GI/Abdominal exam: Present: soft. Absent: distended, tenderness, guarding, rebound, rigid, mass Extremities exam: Present: normal inspection, normal capillary refill. Absent: pedal edema, calf tenderness Back exam: Present: normal inspection. Absent: CVA tenderness (R), CVA tenderness (L) Neurological exam: Present: alert, oriented X3, CN II-XII intact. Absent: motor sensory deficit Skin exam: Present: warm, dry, intact, normal color. Absent: rash Course Vital Signs 09/18/21 09/19/21 09/19/21 23:57 00:17 00:20 Temperature 98.6 F Pulse Rate 82 76 78 Respiratory 19 16 16 Rate Blood Pressure 99/64 99/74 99/74 O2 Sat by Pulse 98 96 94 L Oximetry 09/19/21 09/19/21 09/19/21 00:30 01:00 01:30 Temperature Pulse Rate 70 67 81 Respiratory 17 15 12 Rate Blood Pressure 99/74 84/42 91/66 O2 Sat by Pulse 93 L 95 97 Oximetry 09/19/21 09/19/21 09/19/21 01:40 01:50 02:00 Temperature Pulse Rate 64 64 63 Respiratory 18 17 16 Rate Blood Pressure 105/61 97/67 97/67 O2 Sat by Pulse 92 L 94 L 95 Oximetry 09/19/21 09/19/21 09/19/21 02:10 02:20 02:30 Temperature Pulse Rate 63 83 74 Respiratory 15 25 H 18 Rate Blood Pressure 96/67 95/73 104/70 O2 Sat by Pulse 93 L 95 94 L Oximetry 09/19/21 02:40 Temperature Pulse Rate Respiratory Rate Blood Pressure 104/70 O2 Sat by Pulse Oximetry EKG Findings - EKG Results: EKG: interpreted by ERMD, sinus rhythm (Rate 78 bpm), normal axis, normal QRS, normal ST/T, no acute changes Medical Decision Making - Lab Data Result diagrams: 09/19/21 00:15 09/19/21 00:15 Lab Results 09/19/21 09/19/21 09/19/21 Range/Units 00:15 00:15 00:15 WBC 7.2 (3.8-10.6) k/uL RBC 4.39 (3.80-5.40) m/uL Hgb 13.1 (11.4-16.0) gm/dL Hct 39.5 (34.0-46.0) % MCV 89.9 (80.0-100.0) fL MCH 29.8 (25.0-35.0) pg MCHC 33.2 (31.0-37.0) g/dL RDW 12.6 (11.5-15.5) % Plt Count 183 (150-450) k/uL MPV 8.2 Neutrophils % 57 % Lymphocytes % 35 % Monocytes % 5 % Eosinophils % 1 % Basophils % 0 % Neutrophils # 4.1 (1.3-7.7) k/uL Lymphocytes # 2.5 (1.0-4.8) k/uL Monocytes # 0.4 (0-1.0) k/uL Eosinophils # 0.1 (0-0.7) k/uL Basophils # 0.0 (0-0.2) k/uL PT 10.2 (9.0-12.0) sec INR 0.9 (<1.2) APTT 22.8 (22.0-30.0) sec Sodium (137-145) mmol/L Potassium (3.5-5.1) mmol/L Chloride (98-107) mmol/L Carbon Dioxide (22-30) mmol/L Anion Gap mmol/L BUN (7-17) mg/dL Creatinine (0.52-1.04) mg/dL Est GFR (CKD-EPI)AfAm (>60 ml/min/1.73 sqM) Est GFR (CKD-EPI)NonAf (>60 ml/min/1.73 sqM) Glucose (74-99) mg/dL Calcium (8.4-10.2) mg/dL Total Bilirubin (0.2-1.3) mg/dL AST (14-36) U/L ALT (4-34) U/L Alkaline Phosphatase (38-126) U/L Troponin I (0.000-0.034) ng/mL Total Protein (6.3-8.2) g/dL Albumin (3.5-5.0) g/dL Urine Opiates Screen Not Detected (NotDetected) Ur Oxycodone Screen Not Detected (NotDetected) Urine Methadone Screen Not Detected (NotDetected) Ur Propoxyphene Screen Not Detected (NotDetected) Ur Barbiturates Screen Not Detected (NotDetected) U Tricyclic Antidepress Detected H (NotDetected) Ur Phencyclidine Scrn Not Detected (NotDetected) Ur Amphetamines Screen Not Detected (NotDetected) U Methamphetamines Scrn Not Detected (NotDetected) U Benzodiazepines Scrn Not Detected (NotDetected) Urine Cocaine Screen Not Detected (NotDetected) U Marijuana (THC) Screen Not Detected (NotDetected) Serum Alcohol mg/dL 09/19/21 09/19/21 Range/Units 00:15 00:15 WBC (3.8-10.6) k/uL RBC (3.80-5.40) m/uL Hgb (11.4-16.0) gm/dL Hct (34.0-46.0) % MCV (80.0-100.0) fL MCH (25.0-35.0) pg MCHC (31.0-37.0) g/dL RDW (11.5-15.5) % Plt Count (150-450) k/uL MPV Neutrophils % % Lymphocytes % % Monocytes % % Eosinophils % % Basophils % % Neutrophils # (1.3-7.7) k/uL Lymphocytes # (1.0-4.8) k/uL Monocytes # (0-1.0) k/uL Eosinophils # (0-0.7) k/uL Basophils # (0-0.2) k/uL PT (9.0-12.0) sec INR (<1.2) APTT (22.0-30.0) sec Sodium 134 L (137-145) mmol/L Potassium 3.9 (3.5-5.1) mmol/L Chloride 105 (98-107) mmol/L Carbon Dioxide 21 L (22-30) mmol/L Anion Gap 8 mmol/L BUN 12 (7-17) mg/dL Creatinine 0.66 (0.52-1.04) mg/dL Est GFR (CKD-EPI)AfAm >90 (>60 ml/min/1.73 sqM) Est GFR (CKD-EPI)NonAf >90 (>60 ml/min/1.73 sqM) Glucose 120 H (74-99) mg/dL Calcium 8.9 (8.4-10.2) mg/dL Total Bilirubin 0.4 (0.2-1.3) mg/dL AST 59 H (14-36) U/L ALT 53 H (4-34) U/L Alkaline Phosphatase 62 (38-126) U/L Troponin I <0.012 (0.000-0.034) ng/mL Total Protein 6.8 (6.3-8.2) g/dL Albumin 4.1 (3.5-5.0) g/dL Urine Opiates Screen (NotDetected) Ur Oxycodone Screen (NotDetected) Urine Methadone Screen (NotDetected) Ur Propoxyphene Screen (NotDetected) Ur Barbiturates Screen (NotDetected) U Tricyclic Antidepress (NotDetected) Ur Phencyclidine Scrn (NotDetected) Ur Amphetamines Screen (NotDetected) U Methamphetamines Scrn (NotDetected) U Benzodiazepines Scrn (NotDetected) Urine Cocaine Screen (NotDetected) U Marijuana (THC) Screen (NotDetected) Serum Alcohol <10 mg/dL Disposition Clinical Impression: Altered mental status, Dehydration Disposition: HOME SELF-CARE Condition: Good Instructions (If sedation given, give patient instructions): Dehydration (ED) Is patient prescribed a controlled substance at d/c from ED?: No Referrals: Sylvia Swan MD [Primary Care Provider] - 1-2 days
[2021-09-19 00:37] LABS: Basophils % (A) 0 %; Eosinophils # (A) 0.1 k/uL (0-0.7); Eosinophils % (A) 1 %; HCT 39.5 % (34.0-46.0); HGB 13.1 gm/dL (11.4-16.0); Lymphocytes # (A) 2.5 k/uL (1.0-4.8); Lymphocytes % (A) 35 %; MCH 29.8 pg (25.0-35.0); MCHC 33.2 g/dL (31.0-37.0); MCV 89.9 fL (80.0-100.0); Mean Platelet Volume 8.2; Monocytes # (A) 0.4 k/uL (0-1.0); Monocytes % (A) 5 %; Neutrophils # (A) 4.1 k/uL (1.3-7.7); Neutrophils % (A) 57 %; Platelet Count 183 k/uL (150-450); RBC 4.39 m/uL (3.80-5.40); RDW 12.6 % (11.5-15.5); WBC 7.2 k/uL (3.8-10.6)
[2021-09-19 00:47] LABS: Amphetamine Screen,Urine Not Detected (NotDetected); Barbiturate Screen,Urine Not Detected (NotDetected); Benzodiazepines Screen,Urine Not Detected (NotDetected); Cocaine Screen,Urine Not Detected (NotDetected); Methadone Screen, Urine Not Detected (NotDetected); Opiate Screen,Urine Not Detected (NotDetected); Oxycodone Screen, Urine Not Detected (NotDetected); Phencyclidine Screen,Urine Not Detected (NotDetected); Tricyclic Antidepressant,Urine Detected (NotDetected); Urn Cannabinoid Scrn Not Detected (NotDetected)
[2021-09-19 00:51] LABS: ALT 53 U/L (4-34); AST 59 U/L (14-36); African American GFR (CKD) >90 (>60 ml/min/1.73 sqM); Albumin 4.1 g/dL (3.5-5.0); Alcohol <10 mg/dL; Alkaline Phosphatase 62 U/L (38-126); Anion Gap 8 mmol/L; Blood Urea Nitrogen 12 mg/dL (7-17); Calcium 8.9 mg/dL (8.4-10.2); Carbon Dioxide 21 mmol/L (22-30); Chloride 105 mmol/L (98-107); Glucose 120 mg/dL (74-99); Non-African American GFR(CKD) >90 (>60 ml/min/1.73 sqM); Potassium 3.9 mmol/L (3.5-5.1); Sodium 134 mmol/L (137-145); Total Bilirubin 0.4 mg/dL (0.2-1.3); Total Protein 6.8 g/dL (6.3-8.2)
[2021-09-19 00:56] LABS: INR 0.9 (<1.2); Partial Thromboplastin Time 22.8 sec (22.0-30.0); Prothrombin Time 10.2 sec (9.0-12.0)
--- NOTE | 2021-09-19 01:21 | XR ---
EXAMINATION TYPE: XR chest 2V DATE OF EXAM: 09/19/2021 COMPARISON: NONE HISTORY: Altered mental status TECHNIQUE: 2 views FINDINGS: Heart and mediastinum are normal. Lungs are clear. Diaphragm is normal. Bony thorax appears normal. IMPRESSION: Normal chest.
--- NOTE | 2021-09-19 03:01 | CT ---
EXAMINATION TYPE: CT brain wo con DATE OF EXAM: 09/19/2021 COMPARISON: None HISTORY: AMS, slurred speech, pt has a hard time keeping her eyes open, restless leg syndrome. CT DLP: 1121.4 mGycm Automated exposure control for dose reduction was used. Ventricles have normal size. There is no mass effect nor midline shift. No sign of intracranial hemor rhage. Calvarium is intact. IMPRESSION: Negative unenhanced head CT scan.
[2021-09-19 03:44] LABS: Appearance,Urine Clear (Clear); Bilirubin,Urine Negative (Negative); Blood,Urine Negative (Negative); Color,Urine Light Yellow; Glucose,Urine (UA) Negative (Negative); Ketones,Urine Negative (Negative); Leukocyte Esterase,Urine Negative (Negative); Nitrite,Urine Negative (Negative); PH, Urine 6.5 (5.0-8.0); Protein,Urine Negative (Negative); Specific Gravity,Urine 1.004 (1.001-1.035); Urobilinogen,Urine <2.0 mg/dL (<2.0)
[2021-09-19 04:21] VITALS: PULSE 69
[2021-09-19 04:24] VITALS: BP 100/55; RESP 16
== END 2021-09-19 04:24 | disposition home or self-care (01) ==
LOC: EC 23:56
DX: R41.82 Altered mental status, unspecified (principal); E86.0 Dehydration; Z87.891 Personal history of nicotine dependence; Z79.82 Long term (current) use of aspirin
CPT/HCPCS: 36415; 93005; 80053; 84484; 85025; 85610; 85730; 81003; 80306; 71046; 70450; 99285; G0480; 80320

== ENCOUNTER → 2022-06-26 | Outpatient (CLI) | payer OTHER ==
--- NOTE | 2022-06-28 08:11 | MM ---
Reason for Exam: Screening (asymptomatic). Patient History: Menarche at age 16. First Full-Term at age 43. Late child-bearing (after 30). Premenopausal. Paternal aunt had breast cancer, age 70. Risk Values: Mile 5 year model risk: 1.0%. NCI Lifetime model risk: 12.0%. Tissue Density: There are scattered fibroglandular densities. Findings: There is no suspicious group of microcalcifications in either breast. Benign-appearing round calcifications within both breasts. No suspicious mass within the left breast. Architectural distortion within either breast. There is a oval equal density circumscribed mass within the upper outer right breast at posterior depth measuring 7 mm. May represent an intramammary lymph node. Overall Assessment: Incomplete: need additional imaging evaluation, BI-RAD 0 Management: Diagnostic Breast Ultrasound of the right breast. A clinical breast exam by your physician is recommended on an annual basis and results should be correlated with mammographic findings. [facility] will attempt to contact patient to return for supplemental views and ultrasound if indicated. Electronically signed and approved by: Rigoberto Elliott D.O.
== END | disposition home or self-care (01) ==
LOC: RADMAMWWP 07:17
PROVIDERS: ATTEND Family Medicine
DX: Z12.31 Encounter for screening mammogram for malignant neoplasm of breast (principal); Z80.3 Family history of malignant neoplasm of breast
CPT/HCPCS: 77067

== ENCOUNTER → 2022-07-05 | Outpatient (CLI) | payer OTHER ==
--- NOTE | 2022-07-05 13:08 | USB ---
Reason for Exam: Additional evaluation requested from abnormal screening. Patient History: Menarche at age 16. First Full-Term at age 43. Late child-bearing (after 30). Premenopausal. Paternal aunt had breast cancer, age 70. Risk Values: Mile 5 year model risk: 1.0%. NCI Lifetime model risk: 12.0%. Technique: Method: Targeted. Prior Study Comparison: 06/26/2022 Bilateral MG screening mammo w CAD, [facility]. Findings: The upper outer quadrant of the right breast, the axilla of the right breast and the retroareolar of the right breast were scanned. Targeted ultrasound shows no worrisome solid or cystic mass or abnormal fluid collection. Overall Assessment: Probably benign, BI-RAD 3 Management: Diagnostic Mammogram of the right breast in 6 months. Precautionary short-term follow-up diagnostic right breast mammogram. Lesion is small and well-circumscribed on mammogram. Results were given to the patient verbally at the time of exam. Electronically signed and approved by: Sudeep Shrestha M.D.
== END | disposition home or self-care (01) ==
LOC: RADUSWWP 12:13
PROVIDERS: ATTEND Family Medicine
DX: R92.8 Other abnormal and inconclusive findings on diagnostic imaging of breast (principal); Z80.3 Family history of malignant neoplasm of breast

== ENCOUNTER → 2023-07-01 | Outpatient (CLI) | payer OTHER ==
--- NOTE | 2023-07-02 19:11 | MM ---
Reason for Exam: Screening (asymptomatic). Last screening mammogram was performed 12 month(s) ago. Patient History: Menarche at age 16. First Full-Term at age 43. Late child-bearing (after 30). Premenopausal. Paternal aunt had breast cancer, age 70. Risk Values: Mile 5 year model risk: 1.0%. NCI Lifetime model risk: 11.9%. Prior Study Comparison: 06/26/2022 Bilateral MG screening mammo w CAD, [facility]. Tissue Density: There are scattered areas of fibroglandular density. Findings: Analyzed By CAD. Focal asymmetry within the 8 to 9:00 position of the right breast middle depth is more defined/larger. Further evaluation is recommended. Chronic nodularity upper outer quadrant right breast posterior depth. Otherwise, no significant change. Overall Assessment: Incomplete: need additional imaging evaluation, BI-RAD 0 Management: Special View Mammogram of the right breast. Diagnostic Breast Ultrasound of the right breast. [facility] will attempt to contact patient to return for supplemental views and ultrasound if indicated. Electronically signed and approved by: Sherlyn Samson M.D. Radiologist
== END | disposition home or self-care (01) ==
LOC: RADMAMWWP 12:49
PROVIDERS: ATTEND Family Medicine
DX: Z12.31 Encounter for screening mammogram for malignant neoplasm of breast (principal); Z80.3 Family history of malignant neoplasm of breast
CPT/HCPCS: 77067

== ENCOUNTER → 2023-07-08 | Outpatient (CLI) | payer OTHER ==
--- NOTE | 2023-07-08 13:57 | MM ---
Reason for Exam: Additional evaluation requested from prior study. Last screening mammogram was performed less than 1 month ago. Patient History: Menarche at age 16. First Full-Term at age 43. Late child-bearing (after 30). Premenopausal. Paternal aunt had breast cancer, age 70. Risk Values: Mile 5 year model risk: 1.0%. NCI Lifetime model risk: 11.9%. Tissue Density: Right: There are scattered areas of fibroglandular density. Findings: Analyzed By CAD. Under compression, craniocaudal view there appears to be persistent mild increased density lower outer quadrant right breast. This is a transverse dimension of 0.5 cm and is located 10 cm from the nipple. Ultrasound is recommended for additional evaluation. Overall Assessment: Incomplete: need additional imaging evaluation, BI-RAD 0 Management: Diagnostic Breast Ultrasound of the right breast. A negative mammogram report should not preclude additional follow up of suspicious palpable abnormalities. Patient should continue monthly self breast exam. A clinical breast exam by your physician is recommended on an annual basis and results should be correlated with mammographic findings. Note on Mile scores and lifetime risk: 1. A Mile score greater than 3% is considered moderate risk. If this is the case, consider specialist referral to assess eligibility for a risk reducing agent. 2. If overall lifetime risk for the development of breast cancer is 20% or higher, the patient may qualify for future screening with alternating mammogram and breast MRI. Electronically signed and approved by: Cesar Pacheco D.O. Radiologis
--- NOTE | 2023-07-08 14:37 | USB ---
Reason for Exam: Additional evaluation requested from abnormal screening. Patient History: Menarche at age 16. First Full-Term at age 43. Late child-bearing (after 30). Premenopausal. Paternal aunt had breast cancer, age 70. Risk Values: Mile 5 year model risk: 1.0%. NCI Lifetime model risk: 11.9%. Technique: Method: Targeted. Prior Study Comparison: 06/26/2022 Bilateral MG screening mammo w CAD, [facility]. 07/01/2023 Bilateral MG screening mammo w CAD, [facility]. Findings: The lower outer quadrant of the right breast, the axilla of the right breast and the retroareolar of the right breast were scanned. There is a hypoechoic septated area 9:00 position. 10 cm in the nipple this could correlate with the mammographic finding. While this may be a cystic cluster, good through transmission is not evident. Recommend biopsy additional evaluation. Overall Assessment: Suspicious, BI-RAD 4 Management: Ultrasound Core Biopsy of the right breast. A clinical breast exam by your physician is recommended on an annual basis and results should be correlated with mammographic findings. This exam should not preclude additional follow-up of suspicious palpable abnormalities. Results were given to the patient verbally at the time of exam. Electronically signed and approved by: Cesar Pacheco D.O. Radiologis
== END | disposition home or self-care (01) ==
LOC: RADMAMWWP 13:29
PROVIDERS: ATTEND Family Medicine
DX: R92.321 Mammographic fibroglandular density, right breast (principal); Z80.3 Family history of malignant neoplasm of breast
CPT/HCPCS: 77065; 76642; G0279; 77061

== ENCOUNTER → 2023-07-17 | Day surgery (SDC) | payer OTHER ==
--- NOTE | 2023-07-22 10:13 | MM ---
Reason for Exam: Post Procedure Mammogram. Last screening mammogram was performed less than 1 month ago. Patient History: Menarche at age 16. First Full-Term at age 43. Late child-bearing (after 30). Premenopausal. Paternal aunt had breast cancer, age 70. Risk Values: Mile 5 year model risk: 1.0%. NCI Lifetime model risk: 11.9%. Prior Study Comparison: 06/26/2022 Bilateral MG screening mammo w CAD, [facility]. 07/01/2023 Bilateral MG screening mammo w CAD, [facility]. 07/08/2023 Right MG 3D work up w/cad RT, [facility]. Tissue Density: Right: There are scattered areas of fibroglandular density. Pathology Description: Location: 9 o'clock. Marker Left Behind. Needle Type: Mammotome Cores: 4 Gauge: 13 The procedure of ultrasound guided core biopsy was explained to the patient. Benefits, alternatives, and risks were discussed. An informed consent was then obtained. The 9:00 5 mm lesion is identified and targeted for biopsy. The patient was placed in supine positioning for imaging and for the procedure. The overlying skin was prepped and draped in usual sterile fashion. Lidocaine was used as anesthetic into the skin and subcutaneous tissue up to area of concern in the 9:00 right breast. Under ultrasound guidance, a 13-gauge vacuum-assisted mammotome Elite biopsy gun was used to obtain 4 core samples. Following this, a coil clip was left in lesion. Of note, the lesion collapsed at the first sampling suggesting a benign cystic etiology. The patient tolerated the procedure well without any immediate complication. The patient was kept in the radiology department for short stay after the procedure and then discharged home in stable condition. Postprocedure mammogram: The patient was transferred to mammography for physician ordered post procedure mammogram for clip placement verification. Post procedure mammogram shows clip more anteriorly located than the intended 9:00 focal asymmetry which is more posterior in position on mammogram. If benign results, consider 6 month follow-up diagnostic right breast mammogram. IMPRESSION: Ultrasound guided core biopsy of 9:00 lesion in the right breast. The lesion collapsed at the first sampling suggesting a benign cystic etiology. In addition, the clip is located more anterior than the intended mammographic target. If benign results, consider 6 month follow-up diagnostic right breast mammogram. Full pathology results to follow. Pathology Results: Result: High risk, Intraductual papilloma high risk. Pathology and radiology were reviewed. Findings are concordant. RIGHT BREAST, 9:00, ULTRASOUND GUIDED NEEDLE CORE BIOPSY: Intraductal papilloma and background fibrocystic changes. Overall Assessment: High risk Assessment: MG diagnostic mammo RT wo CAD - Right: Suspicious, BI-RAD 4. Management: Surgical Consultation of the right breast. Electronically signed and approved by: Sherlyn Samson M.D. Radiologist
== END ==
LOC: RADUSWWP 12:37
PROVIDERS: ATTEND Family Medicine
DX: D24.1 Benign neoplasm of right breast (principal); R92.8 Other abnormal and inconclusive findings on diagnostic imaging of breast
CPT/HCPCS: 88305; 77065; 19083; A4648

== ENCOUNTER → 2024-07-22 | Outpatient (CLI) | payer OTHER ==
--- NOTE | 2024-07-26 12:08 | MM ---
Reason for Exam: Additional evaluation requested from abnormal screening. Last screening mammogram was performed less than 1 month ago. Patient History: Menarche at age 16. First Full-Term at age 43. Late child-bearing (after 32). Premenopausal. Patient has history of breast feeding. 07/17/2023, High risk US biopsy breast VAD RT on the right side. Paternal aunt had breast cancer, age 70. Risk Values: Mile 5 year model risk: 1.6%. NCI Lifetime model risk: 14.0%. Prior Study Comparison: 06/26/2022 Bilateral MG screening mammo w CAD, [facility]. 07/01/2023 Bilateral MG screening mammo w CAD, [facility]. 07/08/2023 Right MG 3D work up w/cad RT, [facility]. 07/17/2023 Right MG diagnostic mammo RT wo CAD, [facility]. 07/16/2024 Bilateral MG screening mammo w CAD, [facility]. Tissue Density: Left: There are scattered areas of fibroglandular density. Findings: Analyzed By CAD. Area of concern/asymmetry compresses out on spot compression imaging. No suspicious masses, calcifications or distortions. Overall Assessment: Benign, BI-RAD 2 Management: Screening Mammogram of both breasts in 1 year. Results were given to the patient verbally at the time of exam. Patient should continue monthly self-breast exams. A clinical breast exam by your physician is recommended on an annual basis. This exam should not preclude additional follow-up of suspicious palpable abnormalities. Note on Mile scores and lifetime risk: 1. A Mile score greater than 3% is considered moderate risk. If this is the case, consider specialist referral to assess eligibility for a risk reducing agent. 2. If overall lifetime risk for the development of breast cancer is 20% or higher, the patient may qualify for future screening with alternating mammogram and breast MRI. [facility], , 07/22/2024 8:29 AM. Electronically signed and approved by: Nitesh Guy DO
== END | disposition home or self-care (01) ==
LOC: RADMAMWWP 08:04
PROVIDERS: ATTEND Family Medicine
DX: R92.8 Other abnormal and inconclusive findings on diagnostic imaging of breast (principal); R92.322 Mammographic fibroglandular density, left breast; Z80.3 Family history of malignant neoplasm of breast
CPT/HCPCS: 77065; G0279; 77061